=== PATIENT | female | born 1980 | race Hispanic/Latino ===

== ENCOUNTER 2017-09-29 05:55 | Inpatient (IN) | payer OTHER ==
[2017-09-29] MEDS ORDERED: PENICILLIN 5 MU in NA CHLORIDE 0.9% 100 ML IV ONE (06:15)
[2017-09-29] MEDS ORDERED: BUTORPHANOL 1 MG/ML INJ IV PRN (06:15)
[2017-09-29] MEDS ORDERED: CARBOPROST TROME 250 MCG/ML IM PRN (06:15)
[2017-09-29] MEDS ORDERED: MEPERIDINE HCL 25 MG/0.5 ML IV PRN (06:15)
[2017-09-29] MEDS ORDERED: MIDAZOLAM HCL 2 MG/2 ML INJ IV PRN (06:15)
[2017-09-29] MEDS ORDERED: PROMETHAZINE 25 MG/ML VIAL IM PRN (06:15)
[2017-09-29] MEDS ORDERED: OXYTOCIN/LR 20 UNIT/1,000 ML BAG IV SCH ×2 (06:15→09:00)
[2017-09-29] MEDS ORDERED: PENICILLIN G POT 5 MU/100 ML BAG IV ONE (06:36)
[2017-09-29] MEDS ORDERED: Ringers Lactate 1,000 ML IV PRN (06:42)
[2017-09-29] MEDS ORDERED: OXYTOCIN/LR 20 UNIT/1,000 ML BAG IV ONE (06:47)
[2017-09-29] MEDS ORDERED: Ringers Lactate 1,000 ML IV SCH (07:00)
[2017-09-29] MEDS ORDERED: LABETALOL 20 MG/4ML SYRINGE IV ONE ×3 (07:03→07:13)
[2017-09-29 07:04] LABS: RPR Titer ND
[2017-09-29 07:07] LABS: Absolute Lymphocytes (CBC) 3.1 K/uL (0.7-4.9); Absolute Monocytes 0.5 K/uL (0.1-1.3); Absolute Neutrophil 4.6 K/uL (1.8-8.0); Basophils % 0.2 % (0-1.3); Eosinophils % 0.3 % (0-4.4); Hematocrit 37.8 % (36.0-45.0); Lymphocytes % 37.9 % (15.3-44.8); MCH 29.2 pg (27.0-35.0); MPV 9.5 fL (7.6-11.3); Monocytes % 6.1 % (3.3-12.3); Urine Appearance CLEAR; Urine Bilirubin NEGATIVE (NEG); Urine Blood NEGATIVE (NEG); Urine Color YELLOW; Urine Glucose NEGATIVE (NEG); Urine Protein 1+ (NEG); Urine Urobilinogen 0.2 mg/dL (0.2-1.0); Urine pH 6.5 (5.0-7.0)
[2017-09-29 07:15] LABS: Urine Microscopic Reflex ORDER UMIC
[2017-09-29 07:17] LABS: Urine Bacteria <20 /HPF (<20); Urine Culture Reflex Order NOT NEEDED; Urine RBC NONE SEEN /HPF (NONE SEEN)
[2017-09-29] MEDS ORDERED: METHYLERGONOVINE 0.2MG/ML AMP IM ONE (08:28)
[2017-09-29] MEDS ORDERED: LIDOCAINE 2% INJ, 20 mL 0 ML ONE (08:28)
[2017-09-29] MEDS ORDERED: CARBOPROST TROME 250 MCG/ML IM ONE (08:50)
[2017-09-29] MEDS ORDERED: Oxycodone HCl/Acetaminophen 1 TAB TAB PO PRN (08:58)
[2017-09-29] MEDS ORDERED: ACETAMINOPHEN 500 MG TAB PO PRN (08:58)
[2017-09-29] MEDS ORDERED: BISACODYL 10 MG RECTAL SUPP RECT PRN (08:58)
[2017-09-29] MEDS ORDERED: DIPHENHYDRAMINE 25 MG TAB/CAP PO PRN (08:58)
[2017-09-29] MEDS ORDERED: DOCUSATE NA/SENNA CONC 1 TAB PO PRN (08:58)
[2017-09-29] MEDS: IBUPROFEN 200 MG TAB PO PRN ×2 (10:50→20:58)
[2017-09-29 10:54] VITALS: BMI 41.1
[2017-09-29] MEDS ORDERED: PENICILLIN 2.5 MU in NA CHLORIDE 0.9% 100 ML IV SCH (13:00)
[2017-09-29] MEDS: Oxycodone HCl/Acetaminophen 1 TAB TAB PO PRN (19:53)
[2017-09-29 22:34] LABS: RPR (Rapid Plasma Reagin) NON-REACT (NON-REACT)
[2017-09-30] MEDS: IBUPROFEN 200 MG TAB PO PRN (02:59)
[2017-09-30] MEDS: Oxycodone HCl/Acetaminophen 1 TAB TAB PO PRN (07:40)
[2017-09-30 09:09] VITALS: BP 123/76; TEMP 97.4
--- NOTE | 2017-09-30 15:48 | OP ---
Surgeon: Perry Wood MD The patient is a 36-year-old, 8, para 5, tubal reversal, 39 weeks 1 day, scheduled for induct ion tomorrow, came in active labor today. Beta strep positive. Given 1 dose 5 units of penicillin. Also noted to have significantly elevated blood pressures, one as high as 190/102. The patient was given 2 doses of 20 mg of labetalol and blood pressures have moderated. Last blood pressure 159/90. 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 No signs of preeclampsia. The patient had Stadol 1 mg IV, 25 mg Phenergan IM. After she achieved 4 cm, went rapidly to complet e second stage of 15 minutes or less. Spontaneous vaginal delivery of an estimated 7.5 to 8 pounds f emale. Apgars 9, possibly 10 at 1 minute. No episiotomy. No laceration. Schultze delivery of the placenta. Uterus mildly hypotonic. Hemabate 1 dose given. Uterus contracted down well. Estimated t otal blood loss 450-500 cc. We will keep the IV for several hours to make sure blood pres sures are normal and bleedings normal, then we will discontinue at that point. The patient tolerated all procedures quite well. Was offered Demerol and did not state that she needed any for discomfort after delivery of the baby and clamping of the cord. Final Diagnoses: Term intrauterine . Beta strep prophylaxis. Mild uterine hypotonus. Sig nificant elevation of maternal blood pressures, but no preeclampsia. Labetalol given. NICHO/GEOFF Voice ID: [id number] Report ID: [id number]
--- NOTE | 2017-09-30 15:48 | PREOPHP ---
Date of Admission: 09/29/2017 This is a 36-year-old female, 8, para 5. She had tubal reversal. She is now having her 6 te rm , was scheduled for induction tomorrow. She is 39 weeks 1 day, came in in active labor. She is 3-1/2 cm, 100% effaced, vertex, -1 station. She has had her first penicillin dose about an h our ago. The baby looks good on the monitor. Rupture of membranes, clear fluid. Her blood pressure s were in the 170 range systolic. She has been given 20 mg of labetalol IV and her blood pressures h ave moderated to the 150-160 range. Protein is negative. No edema. I do not think she has preeclam psia. We will monitor blood pressures closely during her labor. She has history of rapid labors and she routinely goes natural childbirth with IV medications only, no epidurals. Nurses offered her ep idural, which she has declined. We anticipate that once she starts making progress it should be pret ty rapid and we would probably see a delivery relatively soon. Full admission talk given. NICHO/GEOFF Voice ID: [id number]
--- NOTE | 2017-09-30 23:21 | DS ---
Date of Discharge: 09/30/2017 Hospital Course: A 36-year-old female, 8, para 5 at 39 weeks 1 day, scheduled for induction the following morning, came in active labor. Subsequently delivered a 7-pound plus female, Apgars 9 at one minute, 10 at five minutes. No episiotomy. No laceration. Schultze delivery of the placenta which was heavily calcified but otherwise normal. Mild uterine hypotonus. Estimated blood loss 450 to 500 cc. IV drip, Pitocin, massage, and Hemabate 1 dose. Penicillin prophylaxis 5 million units given prior to delivery of the baby. During the labor, the patient had significant elevation of her b lood pressure, was given labetalol 20 mg IV x2. is afebrile, ambulating, and voiding. Lo anatoliy is normal. Her blood pressure at 5 a.m. was 158 systolic. 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 No edema. No reflex problems. I do not think she has preeclampsia. She has family history of hypertension. She will be dismissed to return to my office early next week for blood pressure check and if it is st ill elevated, we will probably start her on medications at that time. Full discussion with patient a nd family. Final Diagnoses: Term intrauterine . Multiparous female. Mild uterine hypotonus, penicill in prophylaxis. Blood pressure elevations, probably beginnings of chronic hypertension. We will jason darrius monitor. NICHO/GEOFF Voice ID: [id number] Report ID: [id number]
[2017-10-01 18:47] LABS: HBsAG Nonreactive (Nonreactive)
== END 2017-09-30 11:05 | disposition home or self-care (01) | DRG 774 ==
LOC: L&D 05:55 → 2ND-WC 06:29
PROVIDERS: ADMIT Specialist; ATTEND Specialist
PROC: 10E0XZZ Delivery of Products of Conception, External Approach (ICD-10-PCS; principal; 2017-09-29)
PROC: 10907ZC Drainage of Amniotic Fluid, Therapeutic from Products of Conception, Via Natural or Artificial Opening (ICD-10-PCS; 2017-09-29)
DX: O99.824 Streptococcus B carrier state complicating childbirth (principal); O10.92 Unspecified pre-existing hypertension complicating childbirth; O62.2 Other uterine inertia; Z3A.39 39 weeks gestation of pregnancy; Z37.0 Single live birth
CPT/HCPCS: 36415; 81003; 81015; 85025; 86592; 86850; 86900; 86901; 87340; J0595; J2175; J2210; J2550; J2590

== ENCOUNTER 2018-06-23 11:42 | Emergency (ER) | payer OTHER ==
--- OUTSIDE RECORDS SUMMARY | 2018-06-23 11:46 | XMS REPORT ---
:1980 [facility] Address [address] [place] [address] Dr. Chaparro. [address] [place] [id number] Care Team Providers Name Role Phone Unavailable Unavailable Unavailable Problems This patient has no known problems. Allergies, Adverse Reactions, Alerts This patient has no known allergies or adverse reactions. Medications This patient has no known medications.
--- NOTE | 2018-06-23 12:31 | EDPHYS ---
Physician Documentation [facility] Name: Irma Wier Age: 37 yrs Sex: Female : 1980 Arrival Date: 06/23/2018 Time: 11:45 Bed 19 Private MD: Perry Wood B ED Physician Carlos Coleman HPI: 06/23 12:31 This 37 yrs old Female presents to ER via Ambulatory with complaints of Pelvic kb Pain - 19 wks preg, Decreased Movement. 12:31 This 37 yrs old Female presents to ER via Ambulatory with complaints of Pelvic kb Pain - 19 wks preg. 12:31 The patient presents to the emergency department with abdominal pain, of the suprapubic kb area, described as intermittent, pressure. The estimated gestational age is 19 weeks. course: care: private OB physician, Dr. Wood, Leakage of Fluid: none appreciated, Ultrasound: the patient had an ultrasound, which was normal, Risk/complications: no obvious risks or complications are appreciated. Previous pregnancies: in previous pregnancies patient has had. Associated signs and symptoms: Pertinent positives: abdominal pain, Pertinent negatives: chest pain, diarrhea, dysuria, fever, frequency, nausea, ruptured membranes, seizure, shortness of breath, vaginal bleeding, vaginal discharge, vomiting. The patient has not experienced similar symptoms in the past. The patient has not recently seen a physician. Pt reports intermittent lower abd pressure that started 3 days ago. Denies pressure or pain at this time. Denies vaginal bleeding, spotting. Has appt with OB on 06/28/18. Had US 3 weeks ago with normal findings. Reports she hasn't felt movement this morning, but just started feeling flutters recently so that is not abnormal for her. . SEWER HEAD: 11:55 LMP 01/29/2018 rb1 12:31 9, 2, Living 6, LMP 02/07/2018 kb Historical: - Allergies: 11:57 No Known Allergies; hb - Home Meds: 11:57 Vitamin Oral tab 1 tab once daily [Active]; hb - PMHx: 11:57 None; hb - PSHx: 11:57 surgery for tubal ; Tubal ligation; reversal of tubal ligation; hb - Immunization history:: Adult Immunizations up to date. - Social history:: Smoking status: Patient/guardian denies using tobacco. - Ebola Screening: : No symptoms or risks identified at this time. ROS: 12:31 Constitutional: Negative for fever, chills, and weight loss, ENT: Negative for injury, kb pain, and discharge, Neck: Negative for injury, pain, and swelling, Cardiovascular: Negative for chest pain, palpitations, and edema, Respiratory: Negative for shortness of breath, cough, wheezing, and pleuritic chest pain, Back: Negative for injury and pain, : Negative for injury, bleeding, discharge, and swelling, MS/Extremity: Negative for injury and deformity, Skin: Negative for injury, rash, and discoloration, Neuro: Negative for headache, weakness, numbness, tingling, and seizure. 12:31 Abdomen/GI: Positive for abdominal pain, Negative for nausea, vomiting, and diarrhea, constipation, abdominal cramps, abdominal distension, anorexia. Exam: 12:31 Constitutional: This is a well developed, well nourished patient who is awake, alert, kb and in no acute distress. Head/Face: Normocephalic, atraumatic. ENT: Nares patent. No nasal discharge, no septal abnormalities noted. Tympanic membranes are normal and external auditory canals are clear. Oropharynx with no redness, swelling, or masses, exudates, or evidence of obstruction, uvula midline. Mucous membranes moist. Neck: Trachea midline, no thyromegaly or masses palpated, and no cervical lymphadenopathy. Supple, full range of motion without nuchal rigidity, or vertebral point tenderness. No Meningismus. Chest/axilla: Normal chest wall appearance and motion. Nontender with no deformity. No lesions are appreciated. Cardiovascular: Regular rate and rhythm with a normal S1 and S2. No gallops, murmurs, or rubs. Normal PMI, no JVD. No pulse deficits. Respiratory: Lungs have equal breath sounds bilaterally, clear to auscultation and percussion. No rales, rhonchi or wheezes noted. No increased work of breathing, no retractions or nasal flaring. Abdomen/GI: Soft, non-tender, with normal bowel sounds. No distension or tympany. No guarding or rebound. No evidence of tenderness throughout. Skin: Warm, dry with normal turgor. Normal color with no rashes, no lesions, and no evidence of cellulitis. MS/ Extremity: Pulses equal, no cyanosis. Neurovascular intact. Full, normal range of motion. Neuro: Awake and alert, GCS 15, oriented to person, place, time, and situation. Cranial nerves II-XII grossly intact. Motor strength 5/5 in all extremities. Sensory grossly intact. Cerebellar exam normal. Normal gait. Vital Signs: 11:57 BP 138 / 91; Pulse 77; Resp 16; Temp 98.2; Pulse Ox 100% on R/A; Pain 5/10; hb MDM: 11:53 Patient medically screened. kb 12:30 Data reviewed: vital signs, nurses notes. Data interpreted: Pulse oximetry: on room air kb is 100 %. Interpretation: normal. Counseling: I had a detailed discussion with the patient and/or guardian regarding: the historical points, exam findings, and any diagnostic results supporting the discharge/admit diagnosis, lab results, the need for outpatient follow up, an OB/Gyne specialist, to return to the emergency department if symptoms worsen or persist or if there are any questions or concerns that arise at home. 06/23 12:12 Order name: Urine Dipstick--Ancillary (enter results) 06/23 12:13 Order name: Urine --Ancillary (enter results) 06/23 11:53 Order name: FHT's; Complete Time: 12:17 kb 06/23 11:58 Order name: Urine Dipstick-Ancillary (obtain specimen); Complete Time: 12:10 kb Administered Medications: No medications were administered Disposition: 13:16 Co-signature as Attending Physician, Carlos Coleman MD I agree with the assessment and kdr plan of care. Disposition: 06/23/18 12:30 Discharged to Home. Impression: 19 weeks gestation of . - Condition is Stable. - Discharge Instructions: Second Trimester of , [id number]. - Medication Reconciliation Form, Thank You Letter, Antibiotic Education, Prescription Opioid Use form. - Follow up: Emergency Department; When: As needed; Reason: Worsening of condition. Follow up: Perry Wood MD; When: 2 - 3 days; Reason: Recheck today's complaints, Continuance of care, Re-evaluation by your physician. Signatures: Dispatcher [employer] Vania Orantes FNP-C FNP-Ckb Rittger, Carlos, MD MD kdr Diana Cyr, RN RN rb1 Sahara Morris, RN RN Corrections: (The following items were deleted from the chart) 12:33 12:30 06/23/2018 12:30 Discharged to Home. Impression: 19 weeks gestation of . rb1 Condition is Stable. Forms are Medication Reconciliation Form, Thank You Letter, Antibiotic Education, Prescription Opioid Use. Follow up: Emergency Department; When: As needed; Reason: Worsening of condition. Follow up: Perry Wood; When: 2 - 3 days; Reason: Recheck today's complaints, Continuance of care, Re-evaluation by your physician. kb
--- NOTE | 2018-06-23 12:31 | ER ---
Nurse's Notes [facility] Name: Irma Weir Age: 37 yrs Sex: Female : 1980 Arrival Date: 06/23/2018 Time: 11:45 Bed 19 Private MD: Perry Wood B Diagnosis: 19 weeks gestation of Presentation: 06/23 11:53 Presenting complaint: Patient states: "I have had lower abdominal cramping and pressure hb for 3 days but I did not have time to come in. I also haven't felt him move today. Dr. Wood's office told me to come here." Pt reports she is 19 weeks , MALU 11/11/18, . 11:54 Transition of care: patient was not received from another setting of care. Onset of hb symptoms was June 21, 2018. Risk Assessment: Do you want to hurt yourself or someone else? Patient reports no desire to harm self or others. Care prior to arrival: None. 11:54 Method Of Arrival: Ambulatory hb 11:54 Acuity: HOLDEN 3 hb 11:55 Initial Sepsis Screen: Does the patient meet any 2 criteria? No. Patient's initial rb1 sepsis screen is negative. Does the patient have a suspected source of infection? No. Patient's initial sepsis screen is negative. 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 - Social history:: Smoking status: Patient/guardian denies using tobacco. - Ebola Screening: : No symptoms or risks identified at this time. Screenin:00 Abuse screen: Denies threats or abuse. Denies injuries from another. Nutritional hb screening: No deficits noted. Tuberculosis screening: No symptoms or risk factors identified. Fall Risk None identified. Assessment: 11:55 General: Appears in no apparent distress. comfortable, Behavior is calm, cooperative, rb1 Denies fever. Pain: Complains of pain in pelvic Pain began x 3 days. Neuro: Level of Consciousness is awake, alert, obeys commands, Oriented to person, place, time, situation. Cardiovascular: Capillary refill < 3 seconds is brisk in bilateral fingers. Respiratory: Airway is patent Respiratory effort is even, unlabored, Respiratory pattern is regular, symmetrical. GI: No signs and/or symptoms were reported involving the gastrointestinal system. : No signs and/or symptoms were reported regarding the genitourinary system. Derm: Skin is dry, Skin is normal, Skin temperature is warm. Vital Signs: 11:57 BP 138 / 91; Pulse 77; Resp 16; Temp 98.2; Pulse Ox 100% on R/A; Pain 5/10; hb Vitals: 12:11 Heart Tones 125 bpm. rb1 ED Course: 11:45 Patient arrived in ED. as 11:46 Perry Wood MD is Private Physician. as 11:53 Vania Miller FNP-C is [facility]. kb 11:53 Carlos Coleman MD is Attending Physician. kb 11:56 Triage completed. hb 11:59 Diana Cyr, RN is Primary Nurse. rb1 11:59 Arm band placed on. hb 12:10 Urine collected: clean catch specimen, clear. mh5 12:11 Patient has correct armband on for positive identification. Bed in low position. Call mh5 light in reach. Pulse ox on. NIBP on. 12:30 Perry Wood MD is Referral Physician. kb 12:33 No provider procedures requiring assistance completed. Patient did not have IV access rb1 during this emergency room visit. Administered Medications: No medications were administered Outcome: 12:30 Discharge ordered by MD. kb 12:33 Patient left the ED. rb1 12:33 Discharged to home ambulatory. rb1 12:33 Condition: stable 12:33 Discharge instructions given to patient, Instructed on discharge instructions, follow up and referral plans. Demonstrated understanding of instructions, follow-up care, Prescriptions given X none Signatures: Vania Miller FNP-C FNP-Ckb Martinez, Amelia as Diana Cyr, RN RN [facility] Sahara Morris RN RN Coleen Rico [facility] Corrections: (The following items were deleted from the chart) 11:57 11:54 Presenting complaint: Mother states: "I have had lower abdominal cramping and hb pressure for 3 days but I did not have time to come in. I also haven't felt him move today." Dr. Wood's office told me to come here." Pt reports she is 19 weeks , MALU 11/11/18, hb 11:59 11:53 Presenting complaint: Patient states: "I have had lower abdominal cramping and hb pressure for 3 days but I did not have time to come in. I also haven't felt him move today. Dr. Wood's office told me to come here." Pt reports she is 19 weeks , MALU 11/11/18, hb
[2018-06-23 12:41] VITALS: BP 138/91; TEMP 98.2; O2SAT 100
[2018-06-23 13:44] LABS: Urine Specific Gravity 1.025 (1.005-1.030)
[2018-06-23 20:29] LABS: Urine Blood NEGATIVE (NEG); Urine Glucose NEGATIVE (NEG); Urine Protein NEGATIVE (NEG); Urine Specific Gravity 1.025 (1.005-1.030)
== END 2018-06-23 12:33 | disposition home or self-care (01) ==
LOC: ER 11:42
DX: O36.8120 Decreased fetal movements, second trimester, not applicable or unspecified (principal); Z3A.19 19 weeks gestation of pregnancy
CPT/HCPCS: 81003; 81025; 99284

== ENCOUNTER 2018-10-31 11:40 | Inpatient (IN) | payer OTHER ==
--- OUTSIDE RECORDS SUMMARY | 2018-10-31 11:42 | XMS REPORT ---
:1980 [facility] Address [address] [place] [address] Dr. Chaparro. [address] [place] [id number] Care Team Providers Name Role Phone Unavailable Unavailable Unavailable Problems This patient has no known problems. Allergies, Adverse Reactions, Alerts This patient has no known allergies or adverse reactions. Medications This patient has no known medications.
[2018-10-31] MEDS ORDERED: PROMETHAZINE 25 MG/ML VIAL IM PRN (12:22)
[2018-10-31] MEDS ORDERED: BUTORPHANOL 1 MG/ML INJ IV PRN (12:22)
[2018-10-31] MEDS ORDERED: Ringers Lactate 1,000 ML IV PRN (12:22)
[2018-10-31] MEDS ORDERED: CARBOPROST TROME 250 MCG/ML IM PRN (12:22)
[2018-10-31] MEDS ORDERED: METHYLERGONOVINE 0.2MG/ML AMP IM PRN (12:22)
[2018-10-31] MEDS ORDERED: OXYTOCIN/LR 20 UNIT/1,000 ML BAG IV SCH ×2 (13:00→15:00)
[2018-10-31] MEDS ORDERED: Ringers Lactate 1,000 ML IV SCH (13:00)
[2018-10-31 13:03] LABS: Absolute Lymphocytes (CBC) 1.6 K/uL (0.7-4.9); Basophils % 0.1 % (0-1.3); Hematocrit 37.8 % (36.0-45.0); Lymphocytes % 23.1 % (15.3-44.8); MPV 9.3 fL (7.6-11.3); RBC Red Blood Cell Count 4.38 M/uL (3.86-4.86)
[2018-10-31] MEDS ORDERED: LIDOCAINE 1% MPF 30 ML VIAL ONE (13:05)
[2018-10-31 13:07] LABS: Urine Appearance CLOUDY; Urine Bilirubin NEGATIVE (NEG); Urine Blood NEGATIVE (NEG); Urine Color YELLOW; Urine Glucose NEGATIVE (NEG); Urine Protein TRACE (NEG); Urine pH 6.5 (5.0-7.0)
[2018-10-31] MEDS ORDERED: HYDRALAZINE HCL 20 MG/ML VIAL IV ONE (13:16)
[2018-10-31 13:24] LABS: Urine Microscopic Reflex ORDER UMIC
[2018-10-31] MEDS ORDERED: HYDRALAZINE HCL 20 MG/ML VIAL ONE (13:29)
[2018-10-31 13:33] LABS: Urine Bacteria 20-50 /HPF (<20); Urine Culture Reflex Order NOT NEEDED; Urine RBC <5 /HPF (NONE SEEN)
[2018-10-31] MEDS ORDERED: ACETAMINOPHEN 500 MG TAB PO PRN (14:32)
[2018-10-31] MEDS ORDERED: BISACODYL 10 MG RECTAL SUPP RECT PRN (14:32)
[2018-10-31] MEDS ORDERED: Oxycodone HCl/Acetaminophen 1 TAB TAB PO PRN (14:32)
[2018-10-31] MEDS ORDERED: DIPHENHYDRAMINE 25 MG TAB/CAP PO PRN (14:32)
[2018-10-31] MEDS ORDERED: DOCUSATE NA/SENNA CONC 1 TAB PO PRN (14:32)
[2018-10-31 15:35] VITALS: BMI 39.4
[2018-10-31] MEDS: IBUPROFEN 200 MG TAB PO PRN (15:42)
[2018-10-31] MEDS: Oxycodone HCl/Acetaminophen 1 TAB TAB PO PRN ×2 (17:09→20:45)
--- NOTE | 2018-10-31 18:25 | PREOPHP ---
Date of Admission: 10/31/2018 This is a 37-year-old multiparous female, who had tubal reversal for this . Delivers all of her babies at 38 weeks. Came to the office reporting of contractions. She is 38 weeks and 2, possi reena 38 weeks and 3 days. Noted to be 4 to 4-1/2 in the office. Sent to labor and delivery. She is now 5 cm. FHTs are normal and reactive. Beta strep negative. Rupture of membranes, clear fluid. W e will start some light Pitocin augmentation. Anticipate delivery relatively rapidly once she gets i n more active labor pattern. Full labor talk given. NICHO/GEOFF Voice ID: [id number]
[2018-10-31 20:56] LABS: RPR (Rapid Plasma Reagin) NON-REACT (NON-REACT)
[2018-10-31] MEDS ORDERED: LABETALOL 20 MG/4ML SYRINGE IV ONE (21:12)
[2018-10-31] MEDS ORDERED: LABETALOL HCL 100 MG/20 ML ONE (21:20)
[2018-10-31] MEDS: LABETALOL HCL 100 MG/20 ML IV ONE (21:25)
[2018-11-01] MEDS ORDERED: Ringers Lactate 1,000 ML IV ONE (03:34)
[2018-11-01] MEDS: Oxycodone HCl/Acetaminophen 1 TAB TAB PO PRN (03:34)
[2018-11-01] MEDS: LABETALOL HCL 100 MG/20 ML IV ONE (03:43)
[2018-11-01] MEDS: IBUPROFEN 200 MG TAB PO PRN ×2 (04:59→13:26)
--- NOTE | 2018-11-01 07:58 | OP ---
Surgeon: Perry Wood MD 9, para 6, 1 tubal , 1 miscarriage, 6 living children 38 weeks 2 days. Came into my office 4.5 cm. Sent to labor and delivery, at which time she was 5 cm, started on light Pitocin aug mentation. Rupture of membranes. Went rapidly to complete. Had Stadol 1 mg IV during this initial stage of labor. Blood pressures were elevated to 170/102. She has been given 2 doses of Apresoline 5 mg IV and blood pressures have moderated. She has no edema and her reflexes are normal. Schultze delivery of the placenta, which was inspected and noted to be intact and normal. Less than 350 cc bl ood loss. Rh positive. Immune to Rubella negative. Beta strep screen. Tolerated all procedures we ll. Final Diagnoses: Intrauterine gestation, 38 weeks 2 days. History of delivery at 38 weeks, with all of her pregnancies, estimated 8 pounds or more male . Spontaneous vaginal delivery. NICHO/GEOFF Voice ID: [id number] Report ID: [id number]
[2018-11-01 15:45] VITALS: BP 121/73; TEMP 98.4
--- NOTE | 2018-11-02 05:18 | DS ---
Date of Discharge: 11/01/2018 Hospital Course: A 37-year-old 9, para 6, 1 tubal , 1 miscarriage. Tubal reversal procedure. Came in, in labor at 38 weeks 2 days. Delivered an estimated 8-pound male infant, Apgars 8 and 9. No episiotomy. No laceration. Schultze delivery of the placenta. Less than 350 cc blood loss. Rh positive. Immune to Rubella. Negative beta strep screen. has done well. Not ed to have blood pressure elevation during the labor up to 175 systolic, was given Apresoline and lab etalol and finally clonidine. Blood pressures have moderated. Last blood pressure 140/90. We will watch 1 or 2 more blood pressures. If they are all in this range, we will dismiss her. Bring her ba ck to the office on Wednesday for blood pressure evaluation again. No symptoms or signs of pre-eclampsi a. Final Diagnoses: Term intrauterine 38 weeks 2 days. Vaginal delivery. Hypertension, now resolving. To follow up in the clinic. NICHO/GEOFF Voice ID: [id number] Report ID: [id number]
[2018-11-03 03:19] LABS: HBsAG Nonreactive (Nonreactive)
== END 2018-11-01 17:00 | disposition home or self-care (01) | DRG 807 ==
LOC: 2ND-WC 11:40
PROVIDERS: ADMIT Specialist; ATTEND Specialist
PROC: 10E0XZZ Delivery of Products of Conception, External Approach (ICD-10-PCS; principal; 2018-10-31)
DX: O80 Encounter for full-term uncomplicated delivery (principal); Z37.0 Single live birth; Z3A.38 38 weeks gestation of pregnancy; O13.4 Gestational [pregnancy-induced] hypertension without significant proteinuria, complicating childbirth
CPT/HCPCS: 36415; 81003; 81015; 85025; 86592; 86901; 87340; J0360; J0595; J2210; J2550; J2590